=== PATIENT | female | born 1960 | race Asian ===

== ENCOUNTER → 2025-02-07 13:22 | Outpatient (REF) | payer OTHER, SELFPAY | LOC: WDC 13:22 | PROVIDERS: ATTENDING PHYSICIAN Obstetrics & Gynecology; FAMILY PHYSICIAN Family Medicine | DX: Z12.31 Encounter for screening mammogram for malignant neoplasm of breast (principal) | CPT/HCPCS: 77063; 77067 ==

== ENCOUNTER → 2025-06-06 14:59 | Outpatient (REF) | payer OTHER, SELFPAY | LOC: HWRAD 14:59 | PROVIDERS: ATTENDING PHYSICIAN Family Medicine | DX: R19.00 Intra-abdominal and pelvic swelling, mass and lump, unspecified site (principal) | CPT/HCPCS: 76700 ==